=== PATIENT | female | born 1965 | race American Indian/Alaskan Native ===

== ENCOUNTER 2019-11-11 10:27 | Outpatient (CLI) | payer OTHER ==
--- NOTE | 2019-11-11 11:26 | XRay Report ---
LUMBAR SPINE 3 VIEWS INDICATION: BACK PAIN. COMPARISON: None. IMPRESSION: Normal alignment. Mild disc space narrowing is identified at L5-S1. The remaining disc spaces are within normal limits. Mild diffuse facet arthropathy is suspected. The sacrum and SI joint s are unremarkable. No acute osseous or soft tissue abnormality. RIGHT KNEE 2 VIEWS INDICATION: BACK PAIN. COMPARISON: None. IMPRESSION: No acute osseous or soft tissue abnormality. Mild retropatellar spurring is identifie d. The medial and lateral compartments are within normal limits. Signer Name: Eric Cooper Jr, MD Signed: 11/11/2019 11:21 AM Workstation Name: [id number]
== END 2019-11-11 10:28 | disposition home or self-care (01) ==
LOC: PF 10:27
PROVIDERS: ATTEND Internal Medicine
DX: M48.07 Spinal stenosis, lumbosacral region (principal); M76.891 Other specified enthesopathies of right lower limb, excluding foot; E11.9 Type 2 diabetes mellitus without complications; F31.9 Bipolar disorder, unspecified
CPT/HCPCS: 72100; 94010; 94729